=== PATIENT | female | born 1955 | race Caucasian/White ===

== ENCOUNTER 2018-05-22 11:45 | Day surgery (SDC) | payer BC, SELFPAY ==
--- NOTE | 2018-05-22 | PATH_ITS ---
[facility] Accession Number: [id number] . 01 Material submitted: . PART A: CECAL POLYP PART B: COLON POLYP AT 60 CM . 02 Diagnosis: A. Cecum, Polyp, Biopsy: Tubular adenoma. . B. Polyp at 60 cm, Biopsy: Tubular adenoma. MRV/05/23/2018 . 02 Electronically signed: . Skylar Corcoran MD, Pathologist NPI- [id number] . 01 Gross description: . Received two formalin-filled containers, both labeled with the patient's name: . A. In a container labeled cecal polyp, the specimen consists of a 0.4 cm portion of tissue, entirely submitted in cassette A. B. In a container labeled colon polyp at 60 cm, the specimen consists of multiple less than 0.1 cm to 0.3 cm portions of tissue, entirely submitted in cassette B. ([id number]) /FRR . 02 Pathologist provided ICD-10: D12.0, D12.6 . 02 CPT . 592897, 365321 Performed at: 01 [facility] [address], [place], [place] [id number] MD Dimitri Lozaon MD Phone: [phone] [facility]formed at: 02 [facility] [address] [place], [place] [id number] MD Rudolph Cornejo MD Phone: [phone]
[2018-05-22 12:19] VITALS: BP 144/77; PULSE 81; RESP 16; TEMP 36.5; O2SAT 98; BMI 40.4
[2018-05-22] MEDS: SODIUM CHLORIDE 0.9% 1,000 ML 200 ML IV (12:36)
[2018-05-22] MEDS: MIDAZOLAM 5 MG/5 ML VIAL IV (13:12)
[2018-05-22] MEDS: fentaNYL 250 MCG/5 ML INJ IV (13:17)
--- NOTE | 2018-05-22 13:21 | P.HP_ITS ---
History of Present Illness Date Patient Seen: 05/22/18 Time Patient Seen: 13:19 Chief complaint: colonoscopy [id number] Narrative: Hiral 63-year-old lady who is well known to me from prior visits. She presents today for a screening colonoscopy. Her last colonoscopy was about 10 years ago. Patient History Family & Social History Family History: Reviewed 05/22/18 by Rica Benoit MD Social History: household members spouse Meds Home Medications Medication Instructions Recorded Confirmed Type Aspir-81 81 mg DAILY 05/22/18 05/22/18 History Vitamin C 500 mg DAILY 05/22/18 05/22/18 History atorvastatin 10 mg DAILY 05/22/18 05/22/18 History furosemide 20 mg DAILY 05/22/18 05/22/18 History gabapentin 300 mg TID 05/22/18 05/22/18 History unbafcdx-mhzdaa-ngc9-D3-C-adele 2,000 units DAILY 05/22/18 05/22/18 History levothyroxine 125 mcg DAILY 05/22/18 05/22/18 History losartan-hydrochlorothiazide 100 mg DAILY 05/22/18 05/22/18 History metformin 500 mg DAILY 05/22/18 05/22/18 History omeprazole 20 mg DAILY 05/22/18 05/22/18 History tamoxifen 20 mg DAILY 05/22/18 05/22/18 History Allergies Allergy/AdvReac Type Severity Reaction Status Date / Time shellfish derived Allergy Unknown UNK Unverified 01/31/18 12:09 [SHELLFISH DERIVED] Review of Systems Review of Systems All systems reviewed & are unremarkable except as noted in HPI and below Exam Vital Signs (past 8 hours): - 05/22/18 12:19 Temperature 97.7 F Pulse Rate 81 Respiratory Rate 16 Blood Pressure 144/77 H Pulse Oximetry 98 Oxygen Delivery Method Room Air Narrative Exam Narrative: Hiral a pleasant well-nourished well-developed lady in no distress HEENT: Normocephalic and atraumatic, pupils equal round reactive to light accommodation with anicteric sclera Lungs: Clear to auscultation bilaterally Heart: Regular rate and rhythm without murmur rub or gallop Abdomen: Soft, nontender, active bowel sounds. Extremities: Warm and well perfused Assessment & Plan Plan: Assessment/Plan Narrative: [place] screening colonoscopy in the setting of a generally healthy 63-year- old lady with a personal history of breast cancer. We discussed the risks and benefits of the procedure and the patient expressed a desire to continue
--- NOTE | 2018-05-22 13:50 | PM.OP.1 ---
Operative Date/Time/Diagnoses Date of procedure: 05/22/18 Time of procedure: 13:50 Pre-op diagnosis: Screening colonoscopy Post-op diagnosis: same Procedure & Clinicians Procedure: Colonoscopy to the cecum with polypectomy x2 Same procedure as scheduled: Yes Indications: Last colonoscopy between 5 and 10 years ago Surgeon: Rica Benoit Click Yes if Unassisted: Yes Anesthesia Type: Sedation (Versed 10 mg, fentanyl 250 mcg) Operative Notes Findings: 1. Excellent prep 2. 3 mm sessile polyp at the ileocecal valve 3. 5 mm sessile polyp at 60 cm from the anal verge 4. Mild diverticulosis limited to the sigmoid region 5. No AV malformations 6. Grade 1-2 internal hemorrhoids with prolapsed external hemorrhoids and skin tags without inflammation Closure Type: not applicable Estimated Blood Loss (mL): 1 Procedure in detail: After obtaining informed consent, the patient was brought to the GI suite and placed in the left lateral decubitus position on the examination table. After placement of appropriate monitors, the patient was given incremental doses of Versed and Fentanyl until an appropriate level of sedation was achieved. A time out was held per SCOAP protocol. A digital rectal examination was performed and did not reveal any masses or obstructing lesions. The colonoscope was gently passed into the patient's anus and the entire colon navigated to the level of the cecum with minimal difficulty. Once in the cecum, the scope was withdrawn being sure to go before and beyond all mucosal folds and prominences and get an excellent examination. The findings are noted above. At the level of the rectal vault, the scope was retroflexed and the internal anal canal was examined. The scope was straightened and air aspirated from the colon. The instrument was removed from the patient's body and the procedure was concluded. The patient was allowed to awaken from sedation without difficulty and taken to the post-anesthesia care unit in good condition. Total sedation time 29 min Withdrawal time 15 min Complications: none Condition: stable Disposition: PACU Plan for aftercare: 1. Discharge to home 2. Plan for next colonoscopy in 5 years or as clinically indicated
[2018-05-22 13:55] VITALS: BP 142/73; PULSE 84; RESP 18; TEMP 37.2; O2SAT 96
[2018-05-22 14:00] VITALS: BP 143/74; PULSE 80; RESP 18; O2SAT 98
[2018-05-22 14:05] VITALS: BP 156/76; PULSE 78; RESP 16; O2SAT 98
[2018-05-22 14:11] VITALS: BP 142/73; PULSE 74; RESP 14; O2SAT 98
[2018-05-22 14:18] VITALS: BP 147/74; PULSE 74; RESP 20; TEMP 36.4; O2SAT 97
== END 2018-05-22 14:43 | disposition home or self-care (01) ==
PROVIDERS: PCP Physician Assistant Medical; Visit Provider Surgery
PROC: 0DJD8ZZ Inspection of Lower Intestinal Tract, Via Natural or Artificial Opening Endoscopic (ICD-10-PCS; CPT 45378; principal; 2018-05-22 13:00)
DX: Z12.11 Encounter for screening for malignant neoplasm of colon (principal); K57.30 Diverticulosis of large intestine without perforation or abscess without bleeding; K64.1 Second degree hemorrhoids; D12.0 Benign neoplasm of cecum; D12.5 Benign neoplasm of sigmoid colon; K64.4 Residual hemorrhoidal skin tags; K64.8 Other hemorrhoids
CPT/HCPCS: 45380; 99152; 99153; J2250; J3010

== ENCOUNTER → 2022-02-21 13:24 | Outpatient (CLI) | payer BC, SELFPAY ==
--- NOTE | 2022-02-21 | DI.MG.S_ITS ---
BILATERAL DIGITAL DIAGNOSTIC MAMMOGRAM 3D/2D: 02/21/2022 CLINICAL: Breast cancer. Late short follow up. Comparison is made to exams dated: 12/17/2020 mammogram, 09/02/2019 mammogram, and 10/04/2018 mammogram - [facility]. There are scattered fibroglandular elements in both breasts. Previously described 8 mm asymmetry with an obscured and indistinct margin in the right breast at 12 o'clock middle depth appears much less prominent. It is seen adjacent to post-surgical scarring/fat necrosis. No other significant masses, calcifications, or other findings are seen in either breast. IMPRESSION: INCOMPLETE: NEEDS ADDITIONAL IMAGING EVALUATION The 8 mm asymmetry in the right breast is consistent with fat necrosis or post-surgical scarring and is indeterminate. An ultrasound is recommended for further evaluation and is scheduled to immediately follow this examination. This exam was interpreted at Station ID: [id number]. NOTE: For mammograms, a report in lay terms will be sent to the patient. Approximately 15% of breast malignancies will not be visualized mammographically. In the management of a palpable breast mass, a negative mammogram must not discourage biopsy of a clinically suspicious lesion. Electronically Signed By: Martir López M.D. aty/:02/21/2022 15:33:47 copy to: Latoya Sim ACR BI-RADS Category 0: Incomplete [id number]
--- NOTE | 2022-02-21 | DI.US.S_ITS ---
ULTRASOUND OF RIGHT BREAST: 02/21/2022 CLINICAL: Patient returns today to evaluate a focal asymmetry in the right breast. Comparison is made to exams dated: 02/21/2022 mammogram - [facility], 12/17/2020 ultrasound, 12/17/2020 mammogram, 09/02/2019 mammogram, 09/02/2019 ultrasound, and 10/04/2018 mammogram - [facility]. Color flow and real-time ultrasound of the right breast were performed. Root scale images of the real-time examination were reviewed. There is a 1.7 cm x 1 cm x 1.4 cm irregular mass in the right breast at 1 o'clock middle depth 7 cm from the nipple. This irregular mass is hypoechoic. This abnormality is not significantly changed and correlates with mammography findings. There are calcifications as seen mammographically. Color flow imaging demonstrates that there is no vascularity present. IMPRESSION: BENIGN There is no sonographic evidence of malignancy. The 1.7 cm x 1 cm x 1.4 cm irregular mass in the right breast most likely is fat necrosis and has remained stable for two years. This is consistent with a benign process. Return to annual mammogram screening schedule is recommended. Findings and recommendations were conveyed to the patient during today's evaluation. This exam was interpreted at Station ID: [id number]. Electronically Signed By: Martir López M.D. at/:02/21/2022 15:39:29 Entry: - 02/22/2022 15:28:22 copy to: Latoya Sim letter sent: Normal Exam Ultrasound BI-RADS: 2 Benign
== END ==
PROVIDERS: PCP Physician Assistant Medical; Referring Provider Internal Medicine; Visit Provider Internal Medicine
DX: R92.8 Other abnormal and inconclusive findings on diagnostic imaging of breast (principal); N63.12 Unspecified lump in the right breast, upper inner quadrant; Z85.3 Personal history of malignant neoplasm of breast
CPT/HCPCS: 76642; 77066; G0279

== ENCOUNTER 2023-10-23 08:46 | Emergency (ER) | payer MEDICARE, SELFPAY ==
[2023-10-23] VITALS (12 sets, daily range): BP systolic 127–179; BP diastolic 49–81; PULSE 84–107; RESP 15–32; TEMP 36.8; O2SAT 91–97; BMI 40.3
--- NOTE | 2023-10-23 09:17 | PC.NURSE ---
Pt reports having iron deficient anemia since 2021, she does not take iron supplements because they upset her stomach. Pt has history of bright red blood in her stool and is scheduled for a endoscopy and colonoscopy on october 31. Pt denies SOB other than the usual cold symptoms. Pt reports having a pain in lungs when I cough. Pt reports the pain immediately subsides when she is done coughing. She denies cardiac/pulmonary disease.
--- NOTE | 2023-10-23 09:26 | ED_ITS ---
HPI - URI/Sore Throat General Chief Complaint: Upper Respiratory Symptoms Stated Complaint: labored cough chest congestion since monday Time Seen by Provider: 10/23/23 08:54 Source: patient Mode of arrival: Ambulatory History of Present Illness HPI Narrative: Patient is 68-year-old female history of hyperlipidemia diabetes, presents today with a upper respiratory like symptoms. It has been ongoing for about the last days. She denies any fever. She does report nonproductive cough. She is able hydrated she has no real chest pain some mild shortness of breath. She does cough with deep breaths. She is able to stay hydrated she took Tylenol just prior to arrival. Related Data Home Medications Medication Instructions Recorded Confirmed Aspir-81 81 mg DAILY 05/22/18 08/07/19 Vitamin C 500 mg DAILY 05/22/18 08/07/19 atorvastatin 10 mg DAILY 05/22/18 08/07/19 furosemide 20 mg DAILY 05/22/18 08/07/19 gabapentin 300 mg TID 05/22/18 08/07/19 uasudguo-kwxifx-pim2-D3-C-adele 2,000 units DAILY 05/22/18 08/07/19 levothyroxine 125 mcg DAILY 05/22/18 08/07/19 losartan-hydrochlorothiazide 100 mg DAILY 05/22/18 08/07/19 metformin 500 mg DAILY 05/22/18 08/07/19 omeprazole 20 mg DAILY 05/22/18 08/07/19 tamoxifen 20 mg DAILY 05/22/18 08/07/19 Previous Rx's Medication Instructions Recorded codeine 10 mg-guaifenesin 200 mg/5 5 ml PO Q6H PRN cough #100 mL 10/23/23 mL oral liquid Allergies Allergy/AdvReac Type Severity Reaction Status Date / Time shellfish derived Allergy Unknown UNK Verified 10/23/23 09:06 [SHELLFISH DERIVED] orange Allergy Hives Verified 10/23/23 09:07 Patient History Medical History (Updated 10/23/23 @ 10:37 by Martha Nash DO) History of therapeutic radiation History of ductal carcinoma in situ (DCIS) of breast Breast cancer, right Surgical History (Updated 08/07/19 @ 10:19 by Tonio Serrano MD) History of lumpectomy of right breast Social History household members: spouse Smoking Status: Former smoker Smoking Status: Former smoker alcohol intake frequency: holidays/special occasions only Substance Use Type: does not use Exam Initial Vital Signs Initial Vital Signs: Vital Signs Pulse Rate 107 H 10/23/23 08:53 Blood Pressure 179/81 H 10/23/23 08:53 Pulse Oximetry 93 10/23/23 08:53 GENERAL: Alert 68-year-old female gas not feel well and in no acute distress. HEENT: Head atraumatic,EOMI, pupils reactive, face symmetric, moist mucous membranes PHARYNX: No erythema, no tonsillar exudate, no cervical lymphadenopathy CARDIOVASCULAR: Regular rate and rhythm without murmurs, rubs or gallops. RESPIRATORY: Slight expiratory wheezing no conversational dyspnea no rales or rhonchi no tachypnea ABDOMEN: Soft, nontender. Normoactive bowel sounds all 4 quadrants. No guarding or rebound. EXTREMITIES: Normal range of motion, no clubbing or edema. Neurovascularly intact NEUROLOGICAL: Alert and oriented x4.Normal gait and speech. SKIN: Warm, dry, no laceration, no petechiae, no rashes or lesions. Course Orders Ordered: ED Orders 10/23/23 09:00 Covid-19 + FLU A/B + RSV - PCR Stat 10/23/23 09:26 Chest [XR chest 2V] Stat Discontinued Medications Albuterol (Albuterol Hfa Mdi 60 Puff/8 Gm Inhaler) 1 puff INH NOW ONE Stop: 10/23/23 09:55 Last Admin: 10/23/23 10:22 Dose: Not Given Documented By: JOSEPH Albuterol (Albuterol Hfa Prepack) 1 box MISC DIRECTED ONE Stop: 10/23/23 10:07 Last Admin: 10/23/23 10:07 Dose: 1 box Documented By: EVANS Albuterol/Ipratropium (Albuterol/Ipratropium 3 Ml Ampul) 3 ml INH NOW ONE Stop: 10/23/23 09:27 Last Admin: 10/23/23 09:45 Dose: 3 ml Documented By: EVANS Vital Signs Vital signs: Vital Signs - 8 hr 10/23/23 08:53 10/23/23 08:53 10/23/23 08:56 Temperature 98.2 F Pulse Rate 107 H 102 H Respiratory Rate 18 Blood Pressure 179/81 H 178/81 H Pulse Oximetry 93 96 Oxygen Delivery Method Room Air Oxygen Flow Rate Fraction of Inspired Oxygen 10/23/23 09:00 10/23/23 09:00 10/23/23 09:30 Temperature Pulse Rate 94 H 90 Respiratory Rate 30 H 23 Blood Pressure 172/55 H Pulse Oximetry 95 93 Oxygen Delivery Method Room Air Oxygen Flow Rate Fraction of Inspired Oxygen 10/23/23 09:31 10/23/23 09:31 10/23/23 09:37 Temperature Pulse Rate 92 H 90 Respiratory Rate 32 H 15 Blood Pressure 142/63 H Pulse Oximetry 92 96 Oxygen Delivery Method Oxygen Flow Rate Fraction of Inspired Oxygen 10/23/23 09:37 10/23/23 09:45 10/23/23 10:00 Temperature Pulse Rate 84 88 Respiratory Rate 18 20 Blood Pressure 173/73 H Pulse Oximetry 94 92 Oxygen Delivery Method Room Air Oxygen Flow Rate 0 Fraction of Inspired Oxygen 21 10/23/23 10:01 10/23/23 10:01 10/23/23 10:30 Temperature Pulse Rate 89 92 H Respiratory Rate 19 19 Blood Pressure 153/67 H Pulse Oximetry 91 97 Oxygen Delivery Method Room Air Oxygen Flow Rate Fraction of Inspired Oxygen 10/23/23 10:30 10/23/23 11:00 10/23/23 11:01 Temperature Pulse Rate 91 H Respiratory Rate 18 Blood Pressure 150/67 H 127/49 L Pulse Oximetry 94 Oxygen Delivery Method Oxygen Flow Rate Fraction of Inspired Oxygen 10/23/23 11:01 Temperature Pulse Rate 90 Respiratory Rate 18 Blood Pressure Pulse Oximetry 91 Oxygen Delivery Method Oxygen Flow Rate Fraction of Inspired Oxygen MDM - URI/Sore Throat Lab Data Labs: Lab Results 10/23/23 Range/Units 09:00 SARS-CoV-2 (PCR) Negative (Negative) Influenza A (RT-PCR) Flu a negative (NEGATIVE) Influenza B (RT-PCR) Flu b negative (NEGATIVE) RSV (PCR) Positive A (Negative) Imaging Data Chest x-ray: Radiologist's Impression: PROCEDURE: XR CHEST 2V INDICATIONS: cough TECHNIQUE: 2 views of the chest were acquired. COMPARISON: None. FINDINGS: Surgical changes and devices: None. Lungs and pleura: Generalized interstitial prominence can be seen. No pleural effusions or pneumothorax. Mediastinum: Mediastinal contours are normal. Heart size is within normal. Atherosclerotic calcification of the aortic arch is noted. Bones and chest wall: Age-appropriate bony degenerative changes are seen. No suspicious bony abnormalities. Soft tissues appear unremarkable. IMPRESSION: Generalized interstitial prominence can be seen. Please consider pulmonary edema versus atypical infection. No cardiomegaly. MDM Narrative Medical decision making narrative: Patient is 60-year-old female presents today with upper respiratory like symptoms. She had some mild wheezing on exam but no conversational dyspnea. Albuterol was not really successful for her. Chest x-ray negative for pneumonia. Viral panel positive for RSV. Oxygen within range but on the lower. She would like some cough syrup to help her sleep at night. Supportive care only. #65: Appropriate Treatment for Patients with URI X The patient was diagnosed with upper respiratory infection and was not prescribed or dispensed an antibiotic. [SATISFIES MIPS PERFORMANCE] [] The patient has competing comorbid condition within the last 12 months. The comorbid condition was [] (e.g., neutropenia, cystic fibrosis, chronic bronchitis, pulmonary edema, respiratory failure, rheumatoid lung disease). [MIPS PERFORMANCE EXCEPTION/EXCLUSION] [] The patient is already on antibiotics, or has taken them within the last 30 days. [MIPS PERFORMANCE EXCEPTION/EXCLUSION] [] The patient had a competing diagnosis of [] (e.g. acute otitis media, chronic sinusitis, cellulitis, UTI, etc.). [MIPS PERFORMANCE EXCEPTION/EXCLUSION] [] The patient was diagnosed with upper respiratory infection and was prescribed or dispensed an antibiotic. [DOES NOT SATISFY MIPS PERFORMANCE] Discharge Plan Departure Patient Disposition: Home Clinical Impression: Respiratory syncytial virus (RSV) bronchiolitis Instructions: DI for Respiratory Syncytial Virus -- Adults Activity Restrictions/Additional Instructions: *You have been diagnosed with RSV *What to do: At this time stay hydrated Tylenol Motrin as needed. *Continue to take medications as directed Albuterol inhaler 1-2 puffs every 4 hours if needed for coughing or shortness of breath May try allergy medications such as cetirizine to help with secretions or Benadryl at night Robitussin with codeine 5 mL every 6 hours if needed for severe cough *Follow up with your primary care provider in 2-3 days or call [phone] *Return to ER if you should have increasing shortness of breath chest pain not tolerating fluids [or] any new, worsening or concerning symptoms CONTROLLED SUBSTANCE DISCHARGE (Narcotoic/benzodiazepine/Flexeril/Phenergan) 1. You have been prescribed narcotic medications, it does have acetaminop hen/Tylenol/paracetamol in it, DO NOT TAKE MORE THAN 4,00mg in 24 hours of Tylenol. TRAMADOL DOES NOT CONTAIN TYLENOL 2. Please understand that we cannot provide further refills of narcotics, david odiazepines or controlled substances through the ED and her pain management will need to be through your provider. 3. While on these medications you cannot drive or operate heavy machinery. 4. You cannot sign legal documents or perform any duties such as this. 5. As long as you're taking opiate pain medications he should also be taking a stool softener such as Colace, Dulcolax, MiraLAX or prune juice, to help avoid constipation. Prescriptions: New codeine-guaifenesin 10-200 mg/5 mL liquid 5 ml PO Q6H PRN (Reason: cough) Qty: 100 0RF No Action Aspir-81 81 mg 81 mg DAILY Vitamin C 500 mg 500 mg DAILY atorvastatin 10 mg 10 mg DAILY furosemide 20 mg 20 mg DAILY gabapentin 300 mg 300 mg TID umuizdcb-wslvfb-gzt9-D3-C-adele 2,000 unit 2,000 units DAILY levothyroxine 125 mcg 125 mcg DAILY losartan-hydrochlorothiazide 100 mg 100 mg DAILY metformin 500 mg 500 mg DAILY omeprazole 20 mg 20 mg DAILY tamoxifen 20 mg 20 mg DAILY Referrals: Latoya Sim PA-C [Primary Care Provider] - Stand Alone Forms: Patient Portal/API
[2023-10-23] MEDS: ALBUTEROL/IPRATROPIUM 3 ML AMPUL INH (09:45)
[2023-10-23] MEDS: ALBUTEROL HFA PREPACK 1 BOX MISC (10:07)
[2023-10-23 10:29] LABS: Influenza A - CEPHEID Flu A NEGATIVE (NEGATIVE); Influenza B - CEPHEID Flu B NEGATIVE (NEGATIVE); Respiratory Syncytial Virus POSITIVE (Negative)
[2023-10-23 10:33] LABS: COVID-19 CEPHEID 4-PLEX PCR Negative (Negative)
--- NOTE | 2023-10-24 12:43 | PC.NURSE ---
spoke with flores and Dr. Nash spoke with pharmacist. new prescription sent electronically to the [facility] . called pt back to inform her.
== END 2023-10-23 11:09 | disposition home or self-care (01) ==
PROVIDERS: Emergency Provider Emergency Medicine; PCP Physician Assistant Medical
DX: J21.0 Acute bronchiolitis due to respiratory syncytial virus (principal); Z87.891 Personal history of nicotine dependence
CPT/HCPCS: 0241U; 71046; 94640; 99283; A9270